=== PATIENT | male | born 1960 | race Two or more races ===

== ENCOUNTER 2025-02-08 07:55 | Inpatient (IN) | payer OTHER, MEDICAID ==
[~2025-02-08] VITALS: Ht 180.3 cm; Wt 61.1 kg
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
[2025-02-08 09:01] LABS: Hematocrit 51.3 % (41.0-53.0); Hemoglobin 16.5 g/dL (13.5-17.5); Mean Corpuscular Hemoglobin 28.4 pg (28.0-32.0); Mean Corpuscular Volume 88.0 fL (80.0-100.0); Nucleated Red Blood Cells % 0.1 %
[2025-02-08 09:07] LABS: Chloride 103 mmol/L (98-107); Potassium 4.1 mmol/L (3.5-5.1); Sodium 138 mmol/L (136-145)
[2025-02-08 09:08] LABS: Anion Gap 7 (5-15); Calcium 9.4 mg/dL (8.7-10.4); Carbon Dioxide 28 mmol/L (20-31)
[2025-02-08 09:13] LABS: BUN/Creatinine Ratio 14.0 (10.0-20.0); Blood Urea Nitrogen 16 mg/dL (9-23)
[2025-02-08 09:14] LABS: Glucose 123 mg/dL (74-106)
[2025-02-08] MEDS ORDERED: PANT40TA2 PO (09:18)
[2025-02-08] MEDS: HYDROcodone-ACET 10/325MG TAB PO ONE (09:35)
--- NOTE | 2025-02-08 10:28 | DVH ---
CT CT AB PEL WO CON-NO ORAL OR IV INDICATION: pain EXAM DATE: 02/08/2025 09:57 AM COMPARISON: None RADIATION DOSE: CTDIvol: 9 mGy, DLP: 421 mGy*cm PROCEDURE: Helical CT images were obtained of the abdomen and pelvis without IV contrast Sagittal and coronal reconstructions are provided. ORAL CONTRAST: None. ADDITIONAL IMAGES / REFORMATS: None All C T scans at this medical facility are performed using dose modulation techniques as appropriate to a p erformed exam including the following: Automated exposure control was utilized; adjustment of the MA and/or KV according to patient size; and use of iterative reconstruction technique. FINDINGS: LUNG BASE: Normal. LIVER: Normal. GALLBLADDER AND BILIARY TREE: Decompressed and not well visualized. No intra- or extrahepatic biliary ductal dilation. PANCREAS: Normal. SPLEEN: Normal. BOWEL: Normal. The appendix appears normal. ADRENALS: Normal. KIDNEYS AND URETER: Multiple punctate right kidney stones that are nonobstructive with multiple small right kidney cysts. Severe left hydronephrosis with cortical thickening probably a non functional le ft kidney. BLADDER: Normal. REPRODUCTIVE ORGANS: Normal. LYMPH NODES:No lymphadenopathy. PERITONEUM: No ascites or free air. No other fluid collection. VESSELS: Scattered atherosclerotic calcifications are noted. RETROPERITONEUM: Normal. ABDOMINAL WALL: Normal. BONES: Scattered osseous degenerative changes are noted. IMPRESSION: Multiple punctate right kidney stones that are nonobstructive with multiple small right kidney cysts. Severe left hydronephrosis with cortical thickening probably a non functional left kidney.
[2025-02-08 10:39] LABS: Urine Protein, UAD 1+ (Negative)
[2025-02-08] MEDS: SODIUM CHLORIDE 0.9% 1,000 ML IV ONE ×2 (11:30→11:40)
[2025-02-08] MEDS: KETOROLAC TROMETH 30 MG/ML 1ML VIAL IV ONE (11:55)
[2025-02-08 12:00] VITALS: PULSE 74; RESP 20; O2SAT 95
[2025-02-08] MEDS ORDERED: ONDANSETRON HCL 4 MG/2 ML VIAL IV PRN (12:45)
[2025-02-08] MEDS ORDERED: MORPHINE SULFATE INJ 2 MG/ml SYRG IV PRN (12:45)
[2025-02-08] MEDS ORDERED: NITROGLYCERIN 0.4 MG SL TAB SL PRN (12:45)
--- NOTE | 2025-02-08 13:27 | DVH ---
EXAM: XY CHEST XRAY 1 VIEW Indication: Pain; eval for sob Technique: Single frontal view of the chest was obtained Comparison: None FINDINGS: Lines and Tubes: None Lungs: No focal consolidation. Pleura: No effusion. No pneumothorax. Cardiomediastinal contours: Unremarkable Bones: No acute osseous abnormality. IMPRESSION: No acute cardiopulmonary disease.
--- NOTE | 2025-02-08 13:46 | DVHHP2 ---
History of Present Illness Reason for Visit: abd pain History of Present Illness 64-year-old male with no known past medical or surgical history presents with right-sided abdominal pain that began yesterday and has worsened today. Pain is constant, severe, and radiates to the flank. He denies chest pain, shortness of breath, difficulty urinating, hematuria, diarrhea, fever, nausea, or vomiting. He has not seen a physician in over a year. In the ED, vital signs were stable. CBC and BMP were unremarkable. ua showed mod bacteria CT abdomen/pelvis revealed a right kidney stone causing obstruction and severe left hydronephrosis.will admit pt for further workup and care and provide iv hydration, Past Medical History See HPI above Past Surgical History See HPI above Family History Reviewed, non-contributory to the management of this case. Past Social History The patient lives at home, denies smoking, alcohol or illicit drugs abuse. Review of Systems Constitutional: No: Fever, Chills, Sweats, Weakness, Malaise, Other Eyes: No: Pain, Vision change, Conjunctivae inflammation, Eyelid inflammation, Other, Redness ENT: No: Ear pain, Ear discharge, Nose pain, Nose discharge, Nose congestion, Mouth pain, Mouth swelling, Throat pain, Throat swelling, Other Respiratory: No: Cough, Dry, Shortness of breath, SOB with excertion, Wheezing, Hemoptysis, Pleuritic Pain, Sputum, Wheezing, Other Cardiovascular: No: Chest Pain, Palpitations, Orthopnea, Paroxysmal Noc. Dyspnea, Edema, Lt Headedness, Other Gastrointestinal: Abdominal Pain, Other (right flank pain ); No: Nausea, Vomiting, Diarrhea, Constipation, Melena, Hematochezia Genitourinary: No Dysuria, No Frequency, No Incontinence, No Hematuria, No Retention, No Other Musculoskeletal: No: other, neck pain, shoulder pain, arm pain, back pain, hand pain, leg pain, foot pain Skin: No: Rash, Lesions, Jaundice, Bruising, Other Neurological: No: Weakness, Numbness, Incoordination, Change in speech, Confusion, Seizures, Other Allergies: Coded Allergies: NO KNOWN ALLERGIES (Unverified , 02/08/25) Medications Current Medications Medications Dose Ordered Sig/Destiny Route Start Time Stop Time Status Last Admin Dose Admin Sodium Chloride 1,000 ml @ 100 mls/hr Q10H IV 02/08/25 12:45 UNV Ondansetron HCl 4 mg Q4HP PRN IV 02/08/25 12:45 UNV Docusate Sodium 100 mg BIDPRN PRN PO 02/08/25 12:45 Morphine Sulfate 2 mg Q4HPRN PRN IV 02/08/25 12:45 Enoxaparin Sodium 40 mg DAILY SC 02/08/25 12:45 UNV Nitroglycerin 0.4 mg Q5MINP PRN SL 02/08/25 12:45 Morphine Sulfate 2 mg Q30M PRN IV 02/08/25 12:45 Ceftriaxone Sodium 50 ml @ 100 mls/hr DAILY@09 IV 02/09/25 09:00 Exam Vital Signs Vital Signs Date Time Temp Pulse Resp B/P (MAP) Pulse Ox O2 Delivery O2 Flow Rate FiO2 02/08/25 12:00 74 20 95 Room Air* 0 21 02/08/25 11:25 97.7 103/58 (73) 97.7 General Appearance: Alert, Oriented X3, Cooperative, No acute distress HEENT: Atraumatic, PERRLA, EOMI, Mucous membr. moist/pink Respiratory: Clear to auscultation, Normal air movement Cardiovascular: Regular rate, Normal S1, Normal S2, No murmurs Abdominal: Normal bowel sounds, Soft, No hepatospenomegaly, No masses, Other (right cva tenderness ) Extremities: No clubbing, No cyanosis, No edema, Normal pulses, No tenderness/swelling Skin: No rashes, No breakdown, No significant lesion Neuro: Normal gait, Normal speech, Strength at 5/5 X4 ext, Normal tone, Sensation intact, Cranial nerves 3-12 NL Psych/Mental Status: Mental status NL, Mood NL Labs/Xrays Labs Test 02/08/25 08:44 02/08/25 08:30 Range/Units White Blood Count 8.5 4.4-10.8 10^3/uL Red Blood Count 5.83 4.5-5.90 10^6/uL Hemoglobin 16.5 13.5-17.5 g/dL Hematocrit 51.3 41.0-53.0 % Mean Corpuscular Volume 88.0 80.0-100.0 fL Mean Corpuscular Hemoglobin 28.4 28.0-32.0 pg Mean Corpuscular Hemoglobin Concent 32.3 32.0-36.0 g/dL Red Cell Distribution Width 16.4 H 11.8-14.3 % Platelet Count 207 140-450 10^3/uL Mean Platelet Volume 7.7 6.9-10.8 fL Neutrophils (%) (Auto) 79.4 37.0-80.0 % Lymphocytes (%) (Auto) 13.5 10.0-50.0 % Monocytes (%) (Auto) 5.6 0.0-12.0 % Eosinophils (%) (Auto) 1.2 0.0-7.0 % Basophils (%) (Auto) 0.3 0.0-2.0 % Neutrophils # (Auto) 6.8 1.6-8.6 10 ^3/uL Lymphocytes # (Auto) 1.2 0.4-5.4 10 ^3/uL Monocytes # (Auto) 0.5 0-1.3 10 ^3/uL Eosinophils # (Auto) 0.1 0-0.8 10 ^3/uL Basophils # (Auto) 0 0-0.2 10 ^3/uL Nucleated Red Blood Cells 0.1 % Sodium Level 138 136-145 mmol/L Potassium Level 4.1 3.5-5.1 mmol/L Chloride Level 103 98-107 mmol/L Carbon Dioxide Level 28 20-31 mmol/L Anion Gap 7 5-15 Blood Urea Nitrogen 16 9-23 mg/dL Creatinine 1.14 0.700-1.30 mg/dL Glomerular Filtration Rate Calc 71 >90 mL/min BUN/Creatinine Ratio 14.0 10.0-20.0 Serum Glucose 123 H 74-106 mg/dL Calcium Level 9.4 8.7-10.4 mg/dL Urine Color Yellow Yellow Urine Clarity Clear Clear Urine pH 6.5 5.0-9.0 Urine Specific [place] 1.022 1.001-1.035 Urine Protein 1+ H Negative Urine Ketones Negative Negative Urine Blood Negative Negative /uL Urine Nitrite Negative Negative Urine Bilirubin Negative Negative Urine Urobilinogen Normal Negative mg/dL Urine Leukocyte Esterase Negative Negative /uL Urine RBC 11 0 - 3 /hpf Urine Microscopic WBC 2 0-3 /HPF Urine Squamous Epithelial Cells None seen <5 /hpf Urine Bacteria Mod H None Seen /hpf Urine Mucus Few None Seen Urine Sperm Present None Seen /hpf Urine Glucose Normal Normal mg/dL SEPSIS Sepsis Screen Date sepsis recognized/suspect: Feb 08, 2025 Time Sepsis recognized/suspect: 08 Recent Procedure: No On Antibiotic Therapy: No Respiratory Rate >20: No Heart Rate >90: No Temp<36 C (96.8 F) or >38.3 C: No SBP <90 or MAP <65 mmHG: No New Acute Mental Status Change: No Is the patient on CPAP, BIPAP,: No Physician Orders Ct Ab Pel Wo Con-No Oral Or Iv (02/08/25 09:40) Sodium Chloride 0.9% (02/08/25 11:00) Saline Lock (02/08/25 11:08) Chest Xray 1 View (02/08/25 12:35) Admit (02/08/25 12:35) Allergies (02/08/25 12:35) Code Status (02/08/25 12:35) Sodium Chloride 0.9% (02/08/25 12:45) Ondansetron Hcl (Zofran) (02/08/25 12:45) Docusate Sodium Capsule (Colace Capsule) (02/08/25 12:45) Complete Blood Count (02/09/25 04:00) Comprehensive Metabolic Panel (02/09/25 04:00) Condition: Stable (02/08/25 12:35) BRP (02/08/25 12:35) Morphine Sulfate Injection (02/08/25 12:45) Sequential Compression Device (02/08/25 ) Enoxaparin Sodium (Lovenox) (02/08/25 12:45) Nitroglycerin Sublingual (Ntrostat Subli (02/08/25 12:45) Morphine Sulfate Injection (02/08/25 12:45) Notify Md Of Changes From Base (02/08/25 12:35) Efficiency Analyst For 24 Hours (02/08/25 12:35) Emergency Dysrhythmia Protocol (02/08/25 12:35) Rhythm Strips Once Every Shift (02/08/25 12:35) Oxygen By Nasal Cannula (02/08/25 12:35) Kidney (02/08/25 12:35) Ceftriaxone 1gm/50ml D5w (Rocephin) (02/09/25 09:00) Urine Bacterial Culture (02/08/25 12:35) * Urology Consult (02/08/25 12:35) Vital Signs Date Time Temp Pulse Resp B/P (MAP) Pulse Ox O2 Delivery O2 Flow Rate FiO2 02/08/25 12:00 74 20 95 Room Air* 0 21 02/08/25 11:25 97.7 74 20 103/58 (73) 95 97.7 02/08/25 11:25 74 20 95 Room Air 02/08/25 09:30 74 16 95 Room Air 02/08/25 09:30 97.7 74 16 132/72 (92) 95 97.7 02/08/25 08:11 97.8 87 18 115/70 96 97.8 Laboratory Tests Test 02/08/25 08:44 White Blood Count 8.5 10^3/uL (4.4-10.8) Medications Medications Dose Ordered Sig/Destiny Route Start Time Stop Time Status Last Admin Dose Admin Acetaminophen/ Hydrocodone Bitart 1 tab ONCE ONCE PO 02/08/25 08:30 02/08/25 08:31 DC 02/08/25 09:35 1 TAB Ketorolac Tromethamine 30 mg ONCE ONCE IV 02/08/25 11:00 02/08/25 11:01 DC 02/08/25 11:55 30 MG Sodium Chloride 1,000 ml @ 1,000 mls/hr Q1H ONCE IV 02/08/25 11:00 02/08/25 11:59 DC 02/08/25 11:30 1,000 MLS/HR Assessment/Plan Assessment/Plan 64 yr old male with Right obstructive nephrolithiasis with severe left hydronephrosis requires urology evaluation and possible intervention. acute Obstructive nephrolithiasis with hydronephrosis without melyssa ct scan found abnormal findings ordered Urology consult for possible stent placement or lithotripsy diet as can tolerate IV fluids for hydration Pain control with IV opioids as needed Monitor renal function with daily BMP Monitor creatinine and urine output Avoid nephrotoxic medications acute Hydronephrosis, severe left ordered renal us fu results Maintain hydration strict i/o's FEN / PPx Fluids: IV NS at maintenance rate Electrolytes: Monitor and replace as needed Nutrition: diet DVT Prophylaxis: SCDs until surgery decision GI Prophylaxis: Not indicated unless stress ulcer risk increases Disposition Admit to medical-surgical floor for pain control, hydration, and urology management. Plan discussed with: Patient My Orders Orders - JOCY LAWS DNP Procedure Category Date Status Time Chest Xray 1 View XY 02/08/25 Resulted 12:35 Admit ADMIT 02/08/25 Transmitted 12:35 Allergies LANETTE 02/08/25 In Process 12:35 Code Status CODE 02/08/25 Transmitted 12:35 Sodium Chloride 0.9% PHA 02/08/25 Logged 12:45 Ondansetron Hcl PHA 02/08/25 Logged (Zofran) 12:45 Docusate Sodium PHA 02/08/25 In Process Capsule (Colace 12:45 Complete Blood Count LAB 02/09/25 Verified 04:00 Comprehensive LAB 02/09/25 Verified Metabolic Panel 04:00 Condition: Stable LANETTE 02/08/25 In Process 12:35 BRP LANETTE 02/08/25 In Process 12:35 Morphine Sulfate PHA 02/08/25 In Process Injection 12:45 Sequential LANETTE 02/08/25 In Process Compression Device Enoxaparin Sodium PHA 02/08/25 Logged (Lovenox) 12:45 Nitroglycerin PHA 02/08/25 In Process Sublingual (Ntrostat 12:45 Morphine Sulfate PHA 02/08/25 In Process Injection 12:45 Notify Md Of Changes LANETTE 02/08/25 In Process From Base 12:35 Efficiency Analyst For LANETTE 02/08/25 In Process 24 Hours 12:35 Emergency Dysrhythmia LANETTE 02/08/25 In Process Protocol 12:35 Rhythm Strips Once LANETTE 02/08/25 In Process Every Shift 12:35 Oxygen By Nasal RT 02/08/25 Transmitted Cannula 12:35 Kidney US 02/08/25 Taken 12:35 Ceftriaxone 1gm/50ml PHA 02/09/25 In Process D5w (Rocephin) 09:00 Urine Bacterial MADELIN 02/08/25 Logged Culture 12:35 * Urology Consult CONS 02/08/25 Transmitted 12:35 Date of Service: Feb 08, 2025 Billing Provider: JOCY LAWS DNP Common Visit Codes: [id number] INP/OBS CARE (HIGH) JOCY LAWS [facility] Feb 08, 2025 13:46
--- NOTE | 2025-02-08 13:47 | DVH ---
INDICATION: eval for kidney stone with left hydronephrosis TECHNIQUE: Multiple real-time sonographic images of the kidneys and bladder were obtained. COMPARISON: None FINDINGS: RIGHT kidney measures 13.2 cm in length. No hydronephrosis. Few nonobstructing right renal stones are present. Left kidney is severely atrophic with severe hydronephrosis. Urinary bladder is grossly unremarkable and measures 312 cc. IMPRESSION: Severely atrophic left kidney with probable longstanding chronic left hydronephrosis. Few nonobstructing stones are present in the right kidney. Largest measures 0.5 cm.
[2025-02-08] MEDS: cefTRIAXone 1GM/50ML D5W 50 ML IV ONE (14:04)
[2025-02-08 18:16] VITALS: BP 128/95; PULSE 85; RESP 18; TEMP 98.6; O2SAT 95
[2025-02-08 18:33] VITALS: BP 106/69; PULSE 81; TEMP 97.5; O2SAT 92
[2025-02-08] MEDS: SODIUM CHLORIDE 0.9% 1,000 ML IV SCH (18:44)
[2025-02-08] MEDS: MORPHINE SULFATE INJ 2 MG/ml SYRG IV PRN (18:52)
--- NOTE | 2025-02-08 19:25 | DVHINCON2 ---
Date of service: Feb 08, 2025 Referring Physician Hospitalist Reason for Consultation Severe left hydronephrosis Right renal calculi with right renal colic History of Present Illness History Source: Patient, RN Notes HPI 64-year-old male with no known past medical or surgical history presents with right-sided abdominal pain that began yesterday and has worsened today. Pain is constant, severe, and radiates to the flank. He denies chest pain, shortness of breath, difficulty urinating, hematuria, diarrhea, fever, nausea, or vomiting. He has not seen a physician in over a year. Home Meds Reported Medications Acetaminophen (Tylenol Extra Strength) 500 Mg Tab, 500 MG PO, TAB 02/09/25 Review of Systems Constitutional: No symptom reported Ears, Nose, & Throat: No symptom reported Eyes: No symptom reported Pulmonary/Respiratory: No symptom reported Cardiovascular: No symptom reported Gastrointestinal: Abdominal Pain Genitourinary: No symptom reported Musculoskeletal: Back pain Skin: No symptom reported Psychiatric: No symptom reported Endocrine: No symptom reported Hemotologic/Lymphatic: No symptom reported H&P Exam Vital Signs Vital Signs Date Time Temp Pulse Resp B/P (MAP) Pulse Ox O2 Delivery O2 Flow Rate FiO2 02/08/25 18:52 81 16 106/69 02/08/25 18:33 97.5 92 97.5 02/08/25 12:00 Room Air* 0 21 General Appeara: Well developed, Well nourished, Normal Appearance Head Exam: Normal inspection Neck Exam: Normal inspection Abdominal Exam: Soft, No tenderness Abdominal Pain Onset Location: RLQ, Suprapubic EQUITY RESEARCH ANALYST Exam: Normal hearing, Normal speech, PERRL Neuro/Mental St: Alert, Oriented Appearance: Appropriate appearance, Appropriate insight Eye contact/ Speech: Cooperative, Good eye contact, Normal speech Skin Exam: Normal inspection, Normal color, Warm/dry Lymphatic: Normal inspection Labs/Xrays Labs Test 02/08/25 08:44 02/08/25 08:30 Range/Units White Blood Count 8.5 4.4-10.8 10^3/uL Red Blood Count 5.83 4.5-5.90 10^6/uL Hemoglobin 16.5 13.5-17.5 g/dL Hematocrit 51.3 41.0-53.0 % Mean Corpuscular Volume 88.0 80.0-100.0 fL Mean Corpuscular Hemoglobin 28.4 28.0-32.0 pg Mean Corpuscular Hemoglobin Concent 32.3 32.0-36.0 g/dL Red Cell Distribution Width 16.4 H 11.8-14.3 % Platelet Count 207 140-450 10^3/uL Mean Platelet Volume 7.7 6.9-10.8 fL Neutrophils (%) (Auto) 79.4 37.0-80.0 % Lymphocytes (%) (Auto) 13.5 10.0-50.0 % Monocytes (%) (Auto) 5.6 0.0-12.0 % Eosinophils (%) (Auto) 1.2 0.0-7.0 % Basophils (%) (Auto) 0.3 0.0-2.0 % Neutrophils # (Auto) 6.8 1.6-8.6 10 ^3/uL Lymphocytes # (Auto) 1.2 0.4-5.4 10 ^3/uL Monocytes # (Auto) 0.5 0-1.3 10 ^3/uL Eosinophils # (Auto) 0.1 0-0.8 10 ^3/uL Basophils # (Auto) 0 0-0.2 10 ^3/uL Nucleated Red Blood Cells 0.1 % Sodium Level 138 136-145 mmol/L Potassium Level 4.1 3.5-5.1 mmol/L Chloride Level 103 98-107 mmol/L Carbon Dioxide Level 28 20-31 mmol/L Anion Gap 7 5-15 Blood Urea Nitrogen 16 9-23 mg/dL Creatinine 1.14 0.700-1.30 mg/dL Glomerular Filtration Rate Calc 71 >90 mL/min BUN/Creatinine Ratio 14.0 10.0-20.0 Serum Glucose 123 H 74-106 mg/dL Calcium Level 9.4 8.7-10.4 mg/dL Urine Color Yellow Yellow Urine Clarity Clear Clear Urine pH 6.5 5.0-9.0 Urine Specific [place] 1.022 1.001-1.035 Urine Protein 1+ H Negative Urine Ketones Negative Negative Urine Blood Negative Negative /uL Urine Nitrite Negative Negative Urine Bilirubin Negative Negative Urine Urobilinogen Normal Negative mg/dL Urine Leukocyte Esterase Negative Negative /uL Urine RBC 11 0 - 3 /hpf Urine Microscopic WBC 2 0-3 /HPF Urine Squamous Epithelial Cells None seen <5 /hpf Urine Bacteria Mod H None Seen /hpf Urine Mucus Few None Seen Urine Sperm Present None Seen /hpf Urine Glucose Normal Normal mg/dL PATIENT: NAINA CAMPBELL ACCT: [id number] UNIT: [id number] : 1960 LOC: ER ROOM / BED: / AGE / SEX: 64 / M ADM STATUS: REG ER SERVICE 0940 ORDERING PHYSICIAN: ALIVIA BARONE MD PROCEDURE(s): ABPL - CT AB PEL WO CON-NO ORAL OR IV REASON: pain ORDER NUMBER(s): [id number], ACCESSION NUMBER(s): [id number] CT CT AB PEL WO CON-NO ORAL OR IV INDICATION: pain EXAM DATE: 02/08/2025 09:57 AM COMPARISON: None RADIATION DOSE: CTDIvol: 9 mGy, DLP: 421 mGy*cm PROCEDURE: Helical CT images were obtained of the abdomen and pelvis without IV contrast Sagittal and coronal reconstructions are provided. ORAL CONTRAST: None. ADDITIONAL IMAGES / REFORMATS: None All CT scans at this medical facility are performed using dose modulation techniques as appropriate to a performed exam including the following: Automated exposure control was utilized; adjustment of the MA and/or KV according to patient size; and use of iterative reconstruction technique. FINDINGS: LUNG BASE: Normal. LIVER: Normal. GALLBLADDER AND BILIARY TREE: Decompressed and not well visualized. No intra- or extrahepatic biliary ductal dilation. PANCREAS: Normal. SPLEEN: Normal. BOWEL: Normal. The appendix appears normal. ADRENALS: Normal. KIDNEYS AND URETER: Multiple punctate right kidney stones that are nonobstructive with multiple small right kidney cysts. Severe left hydronephrosis with cortical thickening probably a non functional left kidney. BLADDER: Normal. REPRODUCTIVE ORGANS: Normal. LYMPH NODES:No lymphadenopathy. PERITONEUM: No ascites or free air. No other fluid collection. VESSELS: Scattered atherosclerotic calcifications are noted. RETROPERITONEUM: Normal. ABDOMINAL WALL: Normal. BONES: Scattered osseous degenerative changes are noted. IMPRESSION: Multiple punctate right kidney stones that are nonobstructive with multiple small right kidney cysts. Severe left hydronephrosis with cortical thickening probably a non functional left kidney. ATED BY: ALEXANDRE TIERNEY MD DICTATED DATE/TIME: 02/08/25 1026 SIGNED BY: ALEXANDRE TIERNEY MD SIGNED DATE/TIME: 02/08/25 1026 PATIENT: NAINA CAMPBELL ACCT: [id number] UNIT: [id number] : 1960 LOC: OVERFLOW ROOM / BED: [facility] / A AGE / SEX: 64 / M ADM STATUS: ADM IN SERVICE 1235 ORDERING PHYSICIAN: JOCY LAWS DNP PROCEDURE(s): KIDUS - KIDNEY REASON: eval for kidney stone with left hydronephrosis ORDER NUMBER(s): [id number], ACCESSION NUMBER(s): [id number] INDICATION: eval for kidney stone with left hydronephrosis TECHNIQUE: Multiple real-time sonographic images of the kidneys and bladder were obtained. COMPARISON: None FINDINGS: RIGHT kidney measures 13.2 cm in length. No hydronephrosis. Few nonobstructing right renal stones are present. Left kidney is severely atrophic with severe hydronephrosis. Urinary bladder is grossly unremarkable and measures 312 cc. IMPRESSION: Severely atrophic left kidney with probable longstanding chronic left hydronephrosis. Few nonobstructing stones are present in the right kidney. Largest measures 0.5 cm. ATED BY: SANDIP LÓPEZ MD DICTATED DATE/TIME: 02/08/25 1345 SIGNED BY: SANDIP LÓPEZ MD SIGNED DATE/TIME: 02/08/25 1345 Assessment/Plan Problem List: (1) Kidney stone (2) Hyperglycemia (3) Atrophy of left kidney Primary Diagnosis Severe hydronephrosis, unknown reason, LEFT Right renal stones Right flank pain Bacteriuria Plan non functional left renal unit with severe hydroureter, consult radiology for percutaneous drainage. Nephrectomy to be arranged on outpatient basis. right non obstructing punctate renal stones if right renal colic persistent, would recommend Right ESWL TBA check PSA Plan discussed with: Patient MAYTE MINOR SURVEYOR CHAIN HELPER Feb 08, 2025 19:25 ESTRELLITA GAYLE NP Feb 08, 2025 21:54 MYRNA SOLANO MD Feb 08, 2025 23:44
[2025-02-08 20:58] VITALS: BP 108/57; PULSE 98; RESP 20; TEMP 99.2; O2SAT 93
[2025-02-08 22:34] LABS: INR 1.08 (0.9-1.15); Prothrombin Time 11.4 sec (9.3-11.8)
[2025-02-09] VITALS (11 sets, daily range): BP systolic 120–144; BP diastolic 65–105; PULSE 71–82; RESP 16–20; TEMP 97–98.6; O2SAT 94–99
[2025-02-09] MEDS ORDERED: ACET-1304 PO (05:54)
[2025-02-09 06:06] LABS: Hematocrit 46.6 % (41.0-53.0); Hemoglobin 15.5 g/dL (13.5-17.5); Mean Corpuscular Hemoglobin 29.0 pg (28.0-32.0); Mean Corpuscular Volume 87.0 fL (80.0-100.0); Nucleated Red Blood Cells % 0.0 %
[2025-02-09 06:34] LABS: Alanine Aminotransferase 19 U/L (7-40); Albumin 3.7 g/dL (3.2-4.8); Alkaline Phosphatase 63 U/L (46-116); Anion Gap 9 (5-15); BUN/Creatinine Ratio 19.4 (10.0-20.0); Bilirubin, Total 0.8 mg/dL (0.2-1.0); Blood Urea Nitrogen 20 mg/dL (9-23); Carbon Dioxide 22 mmol/L (20-31); Chloride 106 mmol/L (98-107); Glucose 93 mg/dL (74-106); Potassium 4.5 mmol/L (3.5-5.1); Sodium 137 mmol/L (136-145)
[2025-02-09 06:36] LABS: Calcium 8.7 mg/dL (8.7-10.4); Total Protein 5.6 g/dL (5.7-8.2)
[2025-02-09] MEDS: IODIXANOL 320MG/ML 100ML BTL IV ONE (09:19)
[2025-02-09] MEDS: LIDOCAINE 2%HCL (LOCAL ANESTH.) INJ 20ML MDV ONE (09:44)
[2025-02-09] MEDS: MIDAZOLAM HCL 2MG/2ML 2ml VIAL (1mg/ml) ONE (09:44)
[2025-02-09] MEDS: fentaNYL CITRATE 100 MCG/2 ML VL ONE (09:46)
[2025-02-09] MEDS: ENOXAPARIN SOD 40 MG/0.4 ML SYRINGE SC SCH (09:59)
--- NOTE | 2025-02-09 10:07 | DVH ---
PROCEDURE: Genitourinary catheter placement Procedural Personnel Attending physician(s): Law Brewer Fellow physician(s): None Resident physician(s): None Advanced practice provider(s): None Pre-procedure diagnosis: Left hydronephrosis Post-procedure diagnosis: Same Indication: Urinary obstruction No Additional clinical history: None Complications: No immediate complications. IMPRESSION: Left nephrostomy tube placement. Plan: Flush drain with 10 cc normal saline daily to maintain patency. PROCEDURE SUMMARY - Target organ: Unilateral [place] kidney - Image-guided placement of genitourinary catheter(s) - Additional procedure(s): None PROCEDURE DETAILS: Pre-procedure Consent: Informed consent for the procedure including risks, benefits and alternatives was obtained a nd time-out was performed prior to the procedure. Preparation: The site was prepared and draped using maximal sterile barrier technique including cutan eous antisepsis. Anesthesia/sedation Level of anesthesia/sedation: Moderate sedation (conscious sedation) Anesthesia/sedation administered by: Independent trained observer under attending supervision with co ntinuous monitoring of the patient s level of consciousness and physiologic status Total intra-service sedation time (minutes): 15 Genitourinary catheter placement Side:Left [place] Local anesthesia was administered. Trocar and nephrostomy were advanced into a lower pole calyx under ultrasound and fluoroscopy guidance. . Contrast injection was performed. Genitourinary catheter placed: 8.5 multipurpose drain Findings: Marked hydronephrosis External catheter securement: Non-absorbable suture and adhesive anchoring device Additional genitourinary system intervention Side: NA Genitourinary intervention: None Location of intervention: Not applicable Device used: Not applicable Description of intervention: Not applicable Post-intervention findings: Not applicable Contrast Contrast agent: Visipaque 320 Contrast volume (mL): 10 Radiation Dose Fluoroscopy time (seconds): 8 Reference air kerma (mGy): 0.1 Kerma area product (Gy-cm2): .04 Additional Details Additional description of procedure: None Registry event: V/3/f Device used: Not applicable Equipment details: None Specimens removed: None. A sample was not sent for analysis. Estimated blood loss (mL): Less than 10 Standardized report: [email or web address] Attestation Signer name: Law Brewer I attest that I was present for the entire procedure. I reviewed the stored images and agree with the report as written.
--- NOTE | 2025-02-09 11:10 | DVH ---
PROCEDURE: Genitourinary catheter placement Procedural Personnel Attending physician(s): Law Brewer Fellow physician(s): None Resident physician(s): None Advanced practice provider(s): None Pre-procedure diagnosis: Left hydronephrosis Post-procedure diagnosis: Same Indication: Urinary obstruction No Additional clinical history: None Complications: No immediate complications. IMPRESSION: Left nephrostomy tube placement. Plan: Flush drain with 10 cc normal saline daily to maintain patency. PROCEDURE SUMMARY - Target organ: Unilateral [place] kidney - Image-guided placement of genitourinary catheter(s) - Additional procedure(s): None PROCEDURE DETAILS: Pre-procedure Consent: Informed consent for the procedure including risks, benefits and alternatives was obtained a nd time-out was performed prior to the procedure. Preparation: The site was prepared and draped using maximal sterile barrier technique including cutan eous antisepsis. Anesthesia/sedation Level of anesthesia/sedation: Moderate sedation (conscious sedation) Anesthesia/sedation administered by: Independent trained observer under attending supervision with co ntinuous monitoring of the patient s level of consciousness and physiologic status Total intra-service sedation time (minutes): 15 Genitourinary catheter placement Side:Left [place] Local anesthesia was administered. Trocar and nephrostomy were advanced into a lower pole calyx under ultrasound and fluoroscopy guidance. . Contrast injection was performed. Genitourinary catheter placed: 8.5 multipurpose drain Findings: Marked hydronephrosis External catheter securement: Non-absorbable suture and adhesive anchoring device Additional genitourinary system intervention Side: NA Genitourinary intervention: None Location of intervention: Not applicable Device used: Not applicable Description of intervention: Not applicable Post-intervention findings: Not applicable Contrast Contrast agent: Visipaque 320 Contrast volume (mL): 10 Radiation Dose Fluoroscopy time (seconds): 8 Reference air kerma (mGy): 0.1 Kerma area product (Gy-cm2): .04 Additional Details Additional description of procedure: None Registry event: V/3/f Device used: Not applicable Equipment details: None Specimens removed: None. A sample was not sent for analysis. Estimated blood loss (mL): Less than 10 Standardized report: [email or web address] Attestation Signer name: Law Brewer I attest that I was present for the entire procedure. I reviewed the stored images and agree with the report as written.
[2025-02-09] MEDS: cefTRIAXone 1GM/50ML D5W 50 ML IV SCH (11:12)
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
--- NOTE | 2025-02-09 18:18 | DVHPN2 ---
Progress Note - Dictate Date Seen: Feb 09, 2025 Has the PT tested + for MRSA If YES, has PT been informed?: Yes Medical Necessity Reason Pt with a Central, PICC or Fol: No Medical Necessity Reason Left severe hydronephrosis and nonfunctional renal unit. Left PNT placed per IR URine culture negative Right renal stones, will need ESWL Subjective Patient reports his abdominal pain is controlled with pain medication. vital signs Vital Sign Date Time Temp Pulse Resp B/P (MAP) Pulse Ox O2 Delivery O2 Flow Rate FiO2 02/09/25 16:56 97.9 75 17 138/84 (102) 97 97.9 02/09/25 08:05 Room Air* 0 21 Total Intake and Output 02/08/25 02/08/25 02/09/25 15:00 23:00 07:00 Intake Total 1050 ml 0 ml Output Total 0 ml Balance 1050 ml 0 ml medications Current Medications Medications Dose Ordered Sig/Destiny Route Start Time Stop Time Status Last Admin Dose Admin Sodium Chloride 1,000 ml @ 100 mls/hr Q10H IV 02/08/25 12:45 02/09/25 17:52 100 MLS/HR Ondansetron HCl 4 mg Q4HP PRN IV 02/08/25 12:45 Docusate Sodium 100 mg BIDPRN PRN PO 02/08/25 12:45 Morphine Sulfate 2 mg Q4HPRN PRN IV 02/08/25 12:45 02/08/25 18:52 2 MG Enoxaparin Sodium 40 mg DAILY SC 02/08/25 12:45 Ceftriaxone Sodium 50 ml @ 100 mls/hr DAILY@09 IV 02/09/25 09:00 02/09/25 11:12 100 MLS/HR laboratory and microbiology Laboratory Tests 02/09/25 05:30 Test 02/09/25 05:30 Range/Units Serum Glucose 93 74-106 mg/dL Problem List Nonfunctional left renal unit with severe hydronephrosis, s/p PNT and subsequent nephrectomy pending Right renal stones, pending right ESWL TBA as outpatient Assessment/Plan Clear from urology perspective if pain is controlled. HH to do dressing change twice weekly to nephrostomy site. Nephrostomy to be changed every 8-12 weeks until nephrectomy. He will need right ESWL Problems(with codes): (1) Kidney stone (2) Atrophy of left kidney Plan discussed with: Patient, Other MAYTE MINOR NP Feb 09, 2025 18:18 MYRNA SOLANO MD Feb 10, 2025 10:29
[2025-02-09] MEDS: DOCUSATE SOD 100 MG CAP PO PRN (20:48)
[2025-02-10] VITALS (8 sets, daily range): BP systolic 138–149; BP diastolic 72–100; PULSE 75–91; RESP 18–20; TEMP 97.8–99.3; O2SAT 95–98
[2025-02-10 05:52] LABS: Hematocrit 47.3 % (41.0-53.0); Hemoglobin 16.0 g/dL (13.5-17.5); Mean Corpuscular Hemoglobin 29.2 pg (28.0-32.0); Mean Corpuscular Volume 86.4 fL (80.0-100.0); Nucleated Red Blood Cells % 0.0 %
[2025-02-10 06:04] LABS: Chloride 107 mmol/L (98-107); Potassium 4.1 mmol/L (3.5-5.1); Sodium 136 mmol/L (136-145)
[2025-02-10 06:05] LABS: Anion Gap 8 (5-15); Calcium 8.9 mg/dL (8.7-10.4); Carbon Dioxide 21 mmol/L (20-31)
[2025-02-10 06:10] LABS: BUN/Creatinine Ratio 19.3 (10.0-20.0); Blood Urea Nitrogen 17 mg/dL (9-23)
[2025-02-10 06:19] LABS: Glucose 115 mg/dL (74-106)
[2025-02-10 08:07] LABS: Prostate Specific Antigen 1.8 ng/mL (0.0-4.0)
--- NOTE | 2025-02-10 15:06 | DVHPNRES ---
Progress Note Date Seen: Feb 10, 2025 Resident Creating Document: SARANYA KEARNS RESIDENT Medical Necessity Reason Pt with a Central, PICC or Fol: No Subjective Review of Systems Patient is a 64-year-old male with no prior medical who presented to the ED with chief complaint abdominal pain. he states sudden on of constant sharp pain, concentrated in the lower right quadrant, nonradiating, 10/10 intensity, without aggravating nor relieving factors. He denies fever, nausea, vomiting, diarrhea, dysuria, and hematuria. On evaluation in the ED, initial labs show CBC and chemical panel within normal range, and UA consistent with hematuria. Abdominal/Pelvis CT showed multiple punctate right kidney stones that are nonobstructive with multiple small right kidney cysts, Severe left hydronephrosis with cortical thickening probably a non functional left kidney. Renal ultrasound showed severely atrophic left kidney with probably longstanding chronic left hydronephrosis, few nonobstructing stones are present in the right kidney. Patient was admitted for further work up and follow up. He was started on IV fluids, pain regimen and IV antibiotics. Patient was seen by urology, who recommended percutaneous drainage of the left side, possible left nephrectomy, and right ESWL if the pain persists. IR was consulted and a left nephrostomy tube was placed. Patient tolerated the procedure. Patient seen at bedside. Patient states he feels well, right lower quadrant pain is still present when he moves, but he states it has improved in comparison to arrival. He refers mild in low left back at where is nephrostomy tube has been placed, however manageable. No adverse events over night. Currently denies fever, nausea, vomiting, chills, dysuria, bleeding, bloody output, palpitations, and chest pain. He was seen by urology who cleared the patient, with recommendations for home health dressing changes, recommendations for nephrostomy tube to be changed every 8-12 weeks until nephrectomy and will follow up at [facility]. Pain will be continued to be managed, Flomax has been initiated, and fluid will be continued. Currently pending insurance authorization for home heatlh. We will continue to monitor. Objective vital signs Vital Sign Date Time Temp Pulse Resp B/P (MAP) Pulse Ox O2 Delivery O2 Flow Rate FiO2 02/10/25 13:00 97.8 75 20 145/72 (96) 98 97.8 02/10/25 08:00 Room Air* 0 21 Total Intake and Output 02/09/25 02/09/25 02/10/25 15:00 23:00 07:00 Intake Total 50 ml 1125 ml 800 ml Output Total 1500 ml 1210 ml 800 ml Balance -1450 ml -85 ml 0 ml medications Current Medications Medications Dose Ordered Sig/Destiny Route Start Time Stop Time Status Last Admin Dose Admin Sodium Chloride 1,000 ml @ 100 mls/hr Q10H IV 02/08/25 12:45 02/10/25 05:56 100 MLS/HR Ondansetron HCl 4 mg Q4HP PRN IV 02/08/25 12:45 Docusate Sodium 100 mg BIDPRN PRN PO 02/08/25 12:45 02/09/25 20:48 100 MG Morphine Sulfate 2 mg Q4HPRN PRN IV 02/08/25 12:45 02/10/25 10:52 2 MG Enoxaparin Sodium 40 mg DAILY SC 02/08/25 12:45 02/10/25 09:14 40 MG Ceftriaxone Sodium 50 ml @ 100 mls/hr DAILY@09 IV 02/09/25 09:00 02/10/25 09:14 100 MLS/HR Examination General: Patient alert and oriented in person place and time. Patient following commands HEENT: Normocephalic, atraumatic, EOM intact, pink conjunctiva, pink moist mucous membrane Respiratory/pulmonary: Bilateral lung expansion, clear lungs bilaterally, vesicular murmurs present in almost all lung orr, no associated crackles or wheezes. Abdomen: Abdomen nondistended, normal bowel sounds, soft, mild pain to palpation in RLQ, no palpable masses, presence of left nephrostomy tube draining clear yellow urine, skin around area of nephrostomy without signs of erythema Cardiovascular: Normal RRR, normal S1 and S2 Extremities: no deformities, no peripheral edema present at the lower extremities, normal pulses Skin: No rashes or pruritus, there is no sacral edema present at this time. Neurological: Intact cranial nerves with no focal neurologic deficits laboratory and microbiology Laboratory Tests 02/10/25 05:28 Test 02/10/25 05:28 Range/Units Serum Glucose 115 H 74-106 mg/dL Microbiology Date/Time Source Procedure Growth Status 02/09/25 13:27 Blood Blood Culture - Preliminary NO GROWTH AFTER 24 HOURS OF INCUBATION. Resulted 02/08/25 16:46 Voided Urine Urine Culture - Final Complete Problem List/Assessment/Plan Problem List/Assessment/Plan Assessment and Plan: Intractable abdominal pain secondary to Nephrolithiasis -Ceftriaxone 1 g IV daily -Morphine 2 mg IV q4 hr PRN -Urology: If renal colic persists, recommend ESWL -Urine cultures pending -Blood cultures: preliminary: negative at 24 hours -Flomax 0.4 mg PO -Continue IV fluids Left hydronephrosis -S/p Left nephrostomy tube place -Abdomin/pelvis CT: multiple punctate right kidney stones that are nonobstructive with multiple small right kidney cysts, Severe left hydronephrosis with cortical thickening probably a non functional left kidney. -Renal US: severely atrophic left kidney with probably longstanding chronic left hydronephrosis, few nonobstructing stones are present in the right kidney. -Urology: Requires percutaneous drainage, possible nephrectomy in the outpatient basis -Urology: clear from urology perspective if pain is controlled, home health to do dressing change twice weekl, nephrostomy to be changed every 8/12 weeks until nephrectomy, he will need right ESWL. History of polysubstance use Patient is currently pending insurance authorization for home health, he has been accepted by [facility]. Will continue to manage pain, possible discharge tomorrow. DVT prophylaxis: Lovenox 40 mg SC daily Case discussed with Dr. Mesa Goals of care discussed with the patient for over 30 minutes, who states he understands and agrees. Plan discussed with: Patient Date of Service: Feb 10, 2025 Billing Provider: SHANITA MESA MD Common Visit Codes: [id number] INP/OBS CARE(HIGH) SARANYA KEARNS RESIDENT Feb 10, 2025 15:06 SHANITA MESA MD Feb 10, 2025 21:01
[2025-02-10] MEDS: TAMSULOSIN HYDROCHLORIDE 0.4 MG CAP PO ONE ×2 (15:08→20:16)
[2025-02-11] VITALS (7 sets, daily range): BP systolic 127–156; BP diastolic 72–96; PULSE 66–98; RESP 16–19; TEMP 97.7–98.4; O2SAT 96–99
[2025-02-11 08:05] LABS: Hematocrit 47.8 % (41.0-53.0); Hemoglobin 16.3 g/dL (13.5-17.5); Mean Corpuscular Hemoglobin 29.6 pg (28.0-32.0); Mean Corpuscular Volume 86.9 fL (80.0-100.0); Nucleated Red Blood Cells % 0.0 %
[2025-02-11 08:14] LABS: Chloride 106 mmol/L (98-107); Potassium 4.4 mmol/L (3.5-5.1); Sodium 139 mmol/L (136-145)
[2025-02-11 08:15] LABS: Anion Gap 8 (5-15); Calcium 9.0 mg/dL (8.7-10.4); Carbon Dioxide 25 mmol/L (20-31)
[2025-02-11 08:20] LABS: BUN/Creatinine Ratio 16.0 (10.0-20.0); Blood Urea Nitrogen 17 mg/dL (9-23)
[2025-02-11 08:21] LABS: Glucose 113 mg/dL (74-106)
--- NOTE | 2025-02-11 15:15 | DVHDSRES ---
Discharge Summary Date of Admission Resident Creating Document: SARANYA KEARNS RESIDENT Feb 08, 2025 at 12:35 Date of Discharge: Feb 11, 2025 Labs/Diagnostic Data: Laboratory Results Test 02/11/25 06:39 02/10/25 05:28 02/09/25 05:30 02/08/25 22:02 White Blood Count 8.1 10^3/uL (4.4-10.8) Red Blood Count 5.51 10^6/uL (4.5-5.90) Hemoglobin 16.3 g/dL (13.5-17.5) Hematocrit 47.8 % (41.0-53.0) Mean Corpuscular Volume 86.9 fL (80.0-100.0) Mean Corpuscular Hemoglobin 29.6 pg (28.0-32.0) Mean Corpuscular Hemoglobin Concent 34.1 g/dL (32.0-36.0) Red Cell Distribution Width 17.0 % (11.8-14.3) Platelet Count 194 10^3/uL (140-450) Mean Platelet Volume 7.6 fL (6.9-10.8) Neutrophils (%) (Auto) 85.6 % (37.0-80.0) Lymphocytes (%) (Auto) 8.1 % (10.0-50.0) Monocytes (%) (Auto) 5.8 % (0.0-12.0) Eosinophils (%) (Auto) 0.3 % (0.0-7.0) Basophils (%) (Auto) 0.2 % (0.0-2.0) Neutrophils # (Auto) 7.0 10 ^3/uL (1.6-8.6) Lymphocytes # (Auto) 0.7 10 ^3/uL (0.4-5.4) Monocytes # (Auto) 0.5 10 ^3/uL (0-1.3) Eosinophils # (Auto) 0 10 ^3/uL (0-0.8) Basophils # (Auto) 0 10 ^3/uL (0-0.2) Nucleated Red Blood Cells 0.0 % Sodium Level 139 mmol/L (136-145) Potassium Level 4.4 mmol/L (3.5-5.1) Chloride Level 106 mmol/L (98-107) Carbon Dioxide Level 25 mmol/L (20-31) Anion Gap 8 (5-15) Blood Urea Nitrogen 17 mg/dL (9-23) Creatinine 1.06 mg/dL (0.700-1.30) Glomerular Filtration Rate Calc 78 mL/min (>90) BUN/Creatinine Ratio 16.0 (10.0-20.0) Serum Glucose 113 mg/dL (74-106) Calcium Level 9.0 mg/dL (8.7-10.4) B-Type Natriuretic Peptide 191.64 pg/mL (0-100) Total Bilirubin 0.8 mg/dL (0.2-1.0) Aspartate Amino Transferase (AST) 16 U/L (13-40) Alanine Aminotransferase (ALT) 19 U/L (7-40) Alkaline Phosphatase 63 U/L (46-116) Total Protein 5.6 g/dL (5.7-8.2) Albumin 3.7 g/dL (3.2-4.8) Prothrombin Time 11.4 sec (9.3-11.8) Prothrombin Time INR 1.08 (0.9-1.15) Test 02/08/25 21:48 02/08/25 08:30 Free Prostate Specific Antigen 0.43 ng/mL (N/A) Percent Free Prostate Specific Ag 23.9 % (.) Prostate Specific Antigen Total 1.8 ng/mL (0.0-4.0) Urine Color Yellow (Yellow) Urine Clarity Clear (Clear) Urine pH 6.5 (5.0-9.0) Urine Specific Isabella 1.022 (1.001-1.035) Urine Protein 1+ (Negative) Urine Ketones Negative (Negative) Urine Blood Negative /uL (Negative) Urine Nitrite Negative (Negative) Urine Bilirubin Negative (Negative) Urine Urobilinogen Normal mg/dL (Negative) Urine Leukocyte Esterase Negative /uL (Negative) Urine RBC 11 /hpf (0 - 3) Urine Microscopic WBC 2 /HPF (0-3) Urine Squamous Epithelial Cells None seen /hpf (<5) Urine Bacteria Mod /hpf (None Seen) Urine Mucus Few (None Seen) Urine Sperm Present /hpf (None Seen) Urine Glucose Normal mg/dL (Normal) Other Laboratory Tests 02/11/25 06:39 Brief Hx & Hospital Course: Patient is a 64-year-old male with no prior medical who presented to the ED with chief complaint abdominal pain. he states sudden on of constant sharp pain, concentrated in the lower right quadrant, nonradiating, 10/10 intensity, without aggravating nor relieving factors. He denies fever, nausea, vomiting, diarrhea, dysuria, and hematuria. On evaluation in the ED, initial labs show CBC and chemical panel within normal range, and UA consistent with hematuria. Abdominal/Pelvis CT showed multiple punctate right kidney stones that are nonobstructive with multiple small right kidney cysts, Severe left hydronephrosis with cortical thickening probably a non functional left kidney. Renal ultrasound showed severely atrophic left kidney with probably longstanding chronic left hydronephrosis, few nonobstructing stones are present in the right kidney. Patient was admitted for further work up and follow up. He was started on IV fluids, pain regimen and IV antibiotics. Patient was seen by urology, who recommended percutaneous drainage of the left side, possible left nephrectomy, and right ESWL if the pain persists. IR was consulted and a left nephrostomy tube was placed. Patient tolerated the procedure. Patient seen at bedside. Patient states he feels well, right lower quadrant pain is still present when he moves, but he states it has improved in comparison to arrival. He refers mild in low left back at where is nephrostomy tube has been placed, however manageable. No adverse events over night. Currently denies fever, nausea, vomiting, chills, dysuria, bleeding, bloody output, palpitations, and chest pain. He was seen by urology who cleared the patient, with recommendations for home health dressing changes, recommendations for nephrostomy tube to be changed every 8-12 weeks until nephrectomy and will follow up at [facility]. Pain will be continued to be managed, Flomax has been initiated, and fluid will be continued. Currently pending insurance authorization for home heatlh. We will continue to monitor. On evaluation today, he states he is well, pain is manageable. His vitals have remained stable for discharge home, follow up visit in discharge clinic and Follow up with urologist (Dr. Cardenas) within 1 week. All medications and recommendations were thoroughly explained and the patient states he understands and agrees. Detailed discussion held with patient at bedside were all questions were answered and concerns were addressed. Operations or Procedures PROCEDURE: Genitourinary catheter placement Procedural Personnel Attending physician(s): Lowell Guardado Fellow physician(s): None Resident physician(s): None Advanced practice provider(s): None Pre-procedure diagnosis: Left hydronephrosis Post-procedure diagnosis: Same Indication: Urinary obstruction No Additional clinical history: None Complications: No immediate complications. IMPRESSION: Left nephrostomy tube placement. Plan: Flush drain with 10 cc normal saline daily to maintain patency. PROCEDURE SUMMARY - Target organ: Unilateral unga kidney - Image-guided placement of genitourinary catheter(s) - Additional procedure(s): None PROCEDURE DETAILS: Pre-procedure Consent: Informed consent for the procedure including risks, benefits and alternatives was obtained and time-out was performed prior to the procedure. Preparation: The site was prepared and draped using maximal sterile barrier technique including cutaneous antisepsis. Anesthesia/sedation Level of anesthesia/sedation: Moderate sedation (conscious sedation) Anesthesia/sedation administered by: Independent trained observer under attending supervision with continuous monitoring of the patient s level of consciousness and physiologic status Total intra-service sedation time (minutes): 15 Genitourinary catheter placement Side:Left unga Local anesthesia was administered. Trocar and nephrostomy were advanced into a lower pole calyx under ultrasound and fluoroscopy guidance. . Contrast injection was performed. Genitourinary catheter placed: 8.5 multipurpose drain Findings: Marked hydronephrosis External catheter securement: Non-absorbable suture and adhesive anchoring device Additional genitourinary system intervention Side: NA Genitourinary intervention: None Location of intervention: Not applicable Device used: Not applicable Description of intervention: Not applicable Post-intervention findings: Not applicable Contrast Contrast agent: Visipaque 320 Contrast volume (mL): 10 Radiation Dose Fluoroscopy time (seconds): 8 Reference air kerma (mGy): 0.1 Kerma area product (Gy-cm2): .04 Additional Details Additional description of procedure: None Registry event: V/3/f Device used: Not applicable Equipment details: None Specimens removed: None. A sample was not sent for analysis. Estimated blood loss (mL): Less than 10 Standardized report: [email or web address] Attestation Signer name: Lowell Guardado I attest that I was present for the entire procedure. I reviewed the stored images and agree with the report as written. PROCEDURE: Genitourinary catheter placement Procedural Personnel Attending physician(s): Lowell Guardado Fellow physician(s): None Resident physician(s): None Advanced practice provider(s): None Pre-procedure diagnosis: Left hydronephrosis Post-procedure diagnosis: Same Indication: Urinary obstruction No Additional clinical history: None Complications: No immediate complications. IMPRESSION: Left nephrostomy tube placement. Plan: Flush drain with 10 cc normal saline daily to maintain patency. PROCEDURE SUMMARY - Target organ: Unilateral unga kidney - Image-guided placement of genitourinary catheter(s) - Additional procedure(s): None PROCEDURE DETAILS: Pre-procedure Consent: Informed consent for the procedure including risks, benefits and alternatives was obtained and time-out was performed prior to the procedure. Preparation: The site was prepared and draped using maximal sterile barrier technique including cutaneous antisepsis. Anesthesia/sedation Level of anesthesia/sedation: Moderate sedation (conscious sedation) Anesthesia/sedation administered by: Independent trained observer under attending supervision with continuous monitoring of the patient s level of consciousness and physiologic status Total intra-service sedation time (minutes): 15 Genitourinary catheter placement Side:Left unga Local anesthesia was administered. Trocar and nephrostomy were advanced into a lower pole calyx under ultrasound and fluoroscopy guidance. . Contrast injection was performed. Genitourinary catheter placed: 8.5 multipurpose drain Findings: Marked hydronephrosis External catheter securement: Non-absorbable suture and adhesive anchoring device Additional genitourinary system intervention Side: NA Genitourinary intervention: None Location of intervention: Not applicable Device used: Not applicable Description of intervention: Not applicable Post-intervention findings: Not applicable Contrast Contrast agent: Visipaque 320 Contrast volume (mL): 10 Radiation Dose Fluoroscopy time (seconds): 8 Reference air kerma (mGy): 0.1 Kerma area product (Gy-cm2): .04 Additional Details Additional description of procedure: None Registry event: V/3/f Device used: Not applicable Equipment details: None Specimens removed: None. A sample was not sent for analysis. Estimated blood loss (mL): Less than 10 Standardized report: _[email or web address] Attestation Signer name: Lowell Guardado I attest that I was present for the entire procedure. I reviewed the stored images and agree with the report as written. ATED BY: LOWELL GUARDADO MD DICTATED DATE/TIME: 02/09/25 1004 - INDICATION: eval for kidney stone with left hydronephrosis TECHNIQUE: Multiple real-time sonographic images of the kidneys and bladder were obtained. COMPARISON: None FINDINGS: RIGHT kidney measures 13.2 cm in length. No hydronephrosis. Few nonobstructing right renal stones are present. Left kidney is severely atrophic with severe hydronephrosis. Urinary bladder is grossly unremarkable and measures 312 cc. IMPRESSION: Severely atrophic left kidney with probable longstanding chronic left hydronephrosis. Few nonobstructing stones are present in the right kidney. Largest measures 0.5 cm. ATED BY: SANDIP LÓPEZ MD DICTATED DATE/TIME: 02/08/25 1345 - EXAM: XY CHEST XRAY 1 VIEW Indication: Pain; eval for sob Technique: Single frontal view of the chest was obtained Comparison: None FINDINGS: Lines and Tubes: None Lungs: No focal consolidation. Pleura: No effusion. No pneumothorax. Cardiomediastinal contours: Unremarkable Bones: No acute osseous abnormality. IMPRESSION: No acute cardiopulmonary disease. - CT CT AB PEL WO CON-NO ORAL OR IV INDICATION: pain EXAM DATE: 02/08/2025 09:57 AM COMPARISON: None RADIATION DOSE: CTDIvol: 9 mGy, DLP: 421 mGy*cm PROCEDURE: Helical CT images were obtained of the abdomen and pelvis without IV contrast Sagittal and coronal reconstructions are provided. ORAL CONTRAST: None. ADDITIONAL IMAGES / REFORMATS: None All CT scans at this medical facility are performed using dose modulation techniques as appropriate to a performed exam including the following: Automated exposure control was utilized; adjustment of the MA and/or KV according to patient size; and use of iterative reconstruction technique. FINDINGS: LUNG BASE: Normal. LIVER: Normal. GALLBLADDER AND BILIARY TREE: Decompressed and not well visualized. No intra- or extrahepatic biliary ductal dilation. PANCREAS: Normal. SPLEEN: Normal. BOWEL: Normal. The appendix appears normal. ADRENALS: Normal. KIDNEYS AND URETER: Multiple punctate right kidney stones that are nonobstructive with multiple small right kidney cysts. Severe left hydronephrosis with cortical thickening probably a non functional left kidney. BLADDER: Normal. REPRODUCTIVE ORGANS: Normal. LYMPH NODES:No lymphadenopathy. PERITONEUM: No ascites or free air. No other fluid collection. VESSELS: Scattered atherosclerotic calcifications are noted. RETROPERITONEUM: Normal. ABDOMINAL WALL: Normal. BONES: Scattered osseous degenerative changes are noted. IMPRESSION: Multiple punctate right kidney stones that are nonobstructive with multiple small right kidney cysts. Severe left hydronephrosis with cortical thickening probably a non functional left kidney. ATED BY: ALEXANDRE TIERNEY MD DICTATED DATE/TIME: 02/08/25 1026 - Condition at Discharge: Stable (RN) Final Diagnosis/Problems List # Intractable abdominal pain secondary to Nephrolithiasis # Left hydronephrosis # History of polysubstance use Discharge Disposition: Home Discharge Instruct/Medications Diet: Regular Activity: No Restrictions, As Tolerated Follow Up/Referral: Follow up with d/c clinic. Follow up with urologist (Dr. Cardenas) within 1 week. Medications: -as per EMR -continue home medications Miscellaneous Medications Acetaminophen (Tylenol Extra Strength), 500 MG PO, (Reported) Discharge Statement: "Patient was advised to return to the ER or call 911 if any headaches, dizziness, shortness of breath, chest pain, abdominal pain, bleeding, fevers, or worsening of medical condition. Patient was counseled about treatment plan, medications, possible side effects, patientverbalized understanding. All questions were answered to the best of my ability. This discharge took greater then 30 minutes in planning, reviewing documentation, counseling the patient, and discussing with other team members." ASSESSMENT ASSESSMENT Assessment # Intractable abdominal pain secondary to Nephrolithiasis # Left hydronephrosis # History of polysubstance use Date of Service: Feb 11, 2025 Billing Provider: SHANITA WELLS MD Common Visit Codes: 53304-[id number] DISCH DAY >30min CHON DOZIER RESIDENT Feb 11, 2025 15:15 SHANITA WELLS MD Feb 11, 2025 21:52
[2025-02-12 01:00] VITALS: BP 124/71; PULSE 70; RESP 16; TEMP 97.7; O2SAT 99
[2025-02-12 05:00] VITALS: BP 134/78; PULSE 82; RESP 16; TEMP 98; O2SAT 99
== END 2025-02-11 16:45 | disposition home or self-care (01) | DRG 694 ==
LOC: ER 07:55 → OVERFLOW 12:35 → CENTRAL 23:55
PROVIDERS: ADMIT Internal Medicine Geriatric Medicine; ATTEND Internal Medicine Geriatric Medicine
PROC: 0T9130Z Drainage of Left Kidney with Drainage Device, Percutaneous Approach (ICD-10-PCS; principal; 2025-02-09)
DX: N13.2 Hydronephrosis with renal and ureteral calculous obstruction (principal); R73.9 Hyperglycemia, unspecified; N26.1 Atrophy of kidney (terminal); K29.70 Gastritis, unspecified, without bleeding; Z79.899 Other long term (current) drug therapy
CPT/HCPCS: 36415; 50432; 71045; 74176; 74425; 76775; 76942; 80048; 80053; 81001; 83880; 84154; 85025; 85610; 86850; 86900; 86901; 87040; 87086; 96374; 99152; G0378; J1885; J2250; J7042; Q9967